=== PATIENT | female | born 1955 | race African-American/Black ===

== ENCOUNTER 2018-12-11 20:46 | Emergency (ER) | payer OTHER ==
[~2018-12-11] VITALS: Ht 162.6 cm; Wt 81.6 kg
[2018-12-11] MEDS ORDERED: [UNRECOGNIZED DRUG - OTHER] (21:27)
[2018-12-11] MEDS ORDERED: ZESTRIL20 MG (21:28)
[2018-12-12] MEDS ORDERED: LOSARTAN-HCTZ1 EAC1 PO (11:59)
[2018-12-12] MEDS ORDERED: BENADRYL25 MG PO (11:59)
== END 2018-12-12 14:13 | disposition home or self-care (01) ==
LOC: ER 20:46
DX: T78.3XXA Angioneurotic edema, initial encounter (principal); F41.1 Generalized anxiety disorder; T44.5X5A Adverse effect of predominantly beta-adrenoreceptor agonists, initial encounter; Y92.89 Other specified places as the place of occurrence of the external cause